=== PATIENT | female | born 1965 | race Caucasian/White ===

== ENCOUNTER 2017-11-22 09:05 | Day surgery (SDC) | payer BC ==
[2017-11-22] MEDS ORDERED: Propofol 10 mg/ml Inj (20 ML) ONE (11:24)
[2017-11-22] MEDS ORDERED: Lidocaine Hydrochloride 5 ML INJ ONE (11:57)
[2017-11-22 12:02] VITALS: TEMP 97.3; O2SAT 100
[2017-11-22 13:54] VITALS: BP 107/64; PULSE 55; RESP 13
== END 2017-11-22 13:00 | disposition home or self-care (01) ==
LOC: C.ENDO 09:05
PROVIDERS: ATTEND Internal Medicine Gastroenterology
DX: Z12.11 Encounter for screening for malignant neoplasm of colon (principal); D12.2 Benign neoplasm of ascending colon; D12.3 Benign neoplasm of transverse colon; K57.30 Diverticulosis of large intestine without perforation or abscess without bleeding; K64.1 Second degree hemorrhoids
CPT/HCPCS: 45380; 88305; J2704